=== PATIENT | male | born 1945 | race Caucasian/White ===

== ENCOUNTER → 2018-12-18 | Outpatient (REF) | payer MEDICARE, OTHER | LOC: M LAB REF 17:10 | PROVIDERS: ATTEND Family Medicine | DX: M10.9 Gout, unspecified (principal) ==

== ENCOUNTER → 2019-06-23 | Outpatient (REF) | payer MEDICARE, OTHER | LOC: M LAB REF 12:08 | PROVIDERS: ATTEND Family Medicine | DX: M10.9 Gout, unspecified (principal) ==

== ENCOUNTER → 2020-08-18 | Outpatient (REF) | LOC: M LABSMTC 10:15 | PROVIDERS: ATTEND Pediatrics | DX: Z11.52 Encounter for screening for COVID-19 (principal) ==

== ENCOUNTER → 2020-09-01 | Outpatient (REF) | LOC: M EMP 13:17 | PROVIDERS: ATTEND Family Medicine | DX: Z11.52 Encounter for screening for COVID-19 (principal) ==

== ENCOUNTER → 2020-09-04 | Outpatient (REF) | LOC: M LABSMTC 08:34 | PROVIDERS: ATTEND Pediatrics | DX: Z11.52 Encounter for screening for COVID-19 (principal) ==